=== PATIENT | female | born 1965 ===

== ENCOUNTER 2017-06-12 23:34 | Observation (INO) | payer OTHER ==
[2017-06-12 23:41] VITALS: BMI 37.1
--- NOTE | 2017-06-13 | ED PDOC ---
Arrival/HPI - General Chief Complaint: Back Pain Time Seen by Provider: 06/12/17 23:39 Historian: Patient - History of Present Illness Narrative History of Present Illness (Text): 06/12/17 23:59 Dolly Mejia is a 52 year old female smoker, whose past medical history includes bronchitis, who presents to the Emergency department complaining of chest pain. Patient states she woke up from sleep tonight with sudden onset of sharp back pain radiating to mid-sternal chest tonight. Patient reports associated shortness of breath and notes she felt better after receiving oxygen en route to the hospital. Patient reports family history of OH and CAD. Patient denies fever, chills, nausea, vomiting, diarrhea, urinary symptoms, neck pain, headache, dizziness, or any other complaints. Symptom Onset: Gradual Symptom Course: Unchanged Activities at Onset: Light Context: Home Past Medical History - Provider Review Nursing Documentation Reviewed: Yes - Cardiac Hx Cardiac Disorders: No - Pulmonary Hx Bronchitis: Yes - Neurological Hx Neurological Disorder: No - HEENT Hx HEENT Disorder: No - Renal Hx Renal Disorder: No - Endocrine/Metabolic Hx Endocrine Disorders: No - Hematological/Oncological Hx Blood Disorders: No - Integumentary Hx Dermatological Disorder: No - Musculoskeletal/Rheumatological Hx Musculoskeletal Disorders: No - Gastrointestinal Hx Gastrointestinal Disorders: No - Genitourinary/Gynecological Hx Genitourinary Disorders: No - Psychiatric Hx Psychophysiologic Disorder: No Hx Substance Use: No - Surgical History Hx Section: Yes - Anesthesia Hx Anesthesia: Yes Hx Anesthesia Reactions: No Hx Malignant Hyperthermia: No Family/Social History - Physician Review Nursing Documentation Reviewed: Yes Family/Social History: Unknown Family HX Smoking Status: Light Smoker < 10 Cigarettes Daily Hx Alcohol Use: No Hx Substance Use: No Allergies/Home Meds Allergies/Adverse Reactions: Allergies Penicillins Allergy (Verified 06/12/17 23:41) ITCHING Home Medications: Home Meds Medication Instructions Recorded Confirmed Albuterol 0.5% [Albuterol 0.5% 5 mg NEB PRN PRN 06/13/17 06/13/17 Inhal Chari (2.5 mg/0.5 ml) UD] Review of Systems - Physician Review All systems were reviewed & negative as marked: Yes - Review of Systems Constitutional: Normal. absent: Fevers Eyes: Normal ENT: Normal Respiratory: SOB Cardiovascular: Chest Pain Gastrointestinal: Normal. absent: Abdominal Pain, Diarrhea, Nausea Genitourinary Female: Normal. absent: Dysuria, Frequency, Hematuria, Urine Output Changes Musculoskeletal: Back Pain. absent: Neck Pain Skin: Normal. absent: Rash Neurological: Normal. absent: Headache, Dizziness Endocrine: Normal Hemo/Lymphatic: Normal Psychiatric: Normal Physical Exam Vital Signs Reviewed: Yes Vital Signs Temp Pulse Resp BP Pulse Ox 06/13/17 05:08 97.8 F 77 21 115/71 100 06/13/17 02:43 71 18 116/61 99 06/12/17 23:49 97.6 F 78 18 102/55 L 98 Temperature: Afebrile Blood Pressure: Normal Pulse: Regular Respiratory Rate: Normal Appearance: Positive for: Well-Appearing, Non-Toxic, Comfortable Pain Distress: None Mental Status: Positive for: Alert and Oriented X 3 - Systems Exam Head: Present: Atraumatic, Normocephalic Pupils: Present: PERRL Extroacular Muscles: Present: EOMI Conjunctiva: Present: Normal Mouth: Present: Moist Mucous Membranes Neck: Present: Normal Range of Motion Respiratory/Chest: Present: Decreased Breath Sounds (Decreased breath sounds bilaterally). No: Respiratory Distress, Accessory Muscle Use Cardiovascular: Present: Regular Rate and Rhythm, Normal S1, S2. No: Murmurs Abdomen: No: Tenderness, Distention, Peritoneal Signs Back: Present: Normal Inspection Upper Extremity: Present: Normal Inspection. No: Cyanosis, Edema Lower Extremity: Present: Normal Inspection. No: Edema Neurological: Present: GCS=15, CN II-XII Intact, Speech Normal Skin: Present: Warm, Dry, Normal Color. 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 Plan: -- CTA Chest -- EKG -- CXR -- Labs, cardiac enzymes -- Duoneb -- Reassess and disposition Progress Notes: 06/13/17 00:24 Reviewed EKG, NSR at 74 bpm[address] Non-specific ST/T wave changes. 06/13/17 03:45 CTA Chest shows: No pulmonary embolism. No aortic dissection or aneurysm. No pleural or pericardial effussions. No pulmonary consolidation. A few blebs are noted in the apices. Cholelithiasis without evidence of cholecystitis. There are non obstructing renal calculi. IMPRESSION: Cholelithiasis. 06/13/18 05:10 US Gallbadder and Pancreas: There is a negative sonographic Saez's sign per tissue technologist. Multiple gallstones are present. No pericholecystic fluid. The gallbladder wall measures 2.6 mm which is within normal limits. The common bile duct measures 2.9 mm which is within normal limits. The liver is increased in echogenicity consistent with fatty infiltration. The pancreas is suboptimally visualized. The aorta is not visualized. No right hydronephrosis. The right kidney measures 10 cm in length. IMPRESSION: Cholelithiasis without evidence of cholecystitis. 06/13/17 05:[address] Nino, who is aware and agrees with plan. Accepts pt in to her service. Pt will go to remote telemetry observation for chest pain and back pain. - Lab Interpretations Lab Results: 06/13/17 00:35 06/13/17 00:35 Lab Results 06/13/17 00:35: WBC 6.7, RBC 4.57, Hgb 13.2, Hct 41.0, MCV 89.7, MCH 28.9, MCHC 32.2, RDW 13.5, Plt Count 257, MPV 10.3 06/13/17 00:35: Sodium 141, Potassium 4.2, Chloride 105, Carbon Dioxide 27, Anion Gap 13, BUN 12, Creatinine 0.6 L, Est GFR ( Amer) > 60, Est GFR ( Non-Af Amer) > 60, Random Glucose 126 H, Calcium 8.9, Total Bilirubin 0.3, AST 97 H, ALT 77 H, Alkaline Phosphatase 160 H, Lactate Dehydrogenase 687, Total Creatine Kinase 86, Troponin I < 0.01, Total Protein 6.9, Albumin 3.8, Globulin 3.1, Albumin/Globulin Ratio 1.2 06/13/17 00:35: PT 10.0, INR 0.88 L, APTT 29.7 I have reviewed the lab results: Yes - RAD Interpretation Radiology Orders: 06/13/17 00:01 ANGIO CHEST PE PROTOCOL [CT] Stat 06/13/17 00:09 CHEST PORTABLE [RAD] Stat 06/13/17 04:26 GALLBLADDER & PANCREAS [US] Stat Temporary Help Agency Referral Clerk: ED Physician, Radiologist - EKG Interpretation Interpreted by ED Physician: Yes Type: 12 lead EKG - Medication Orders Current Medication Orders: Aspirin (Ecotrin) 81 mg PO DAILY [facility] Last Admin: 06/13/17 09:39 Dose: 81 mg Famotidine (Pepcid) 20 mg PO 1000,2200 DON Last Admin: 06/13/17 09:38 Dose: 20 mg Discontinued Medications Acetaminophen (Tylenol 325mg Tab) 650 mg PO STAT STA Stop: 06/13/17 00:45 Last Admin: 06/13/17 00:57 Dose: 650 mg MAR Pain/Vitals Document 06/13/17 00:57 LA (Rec: 06/13/17 00:59 LA [id number]) Pain Reassessment Is This A Pain ReAssessment? No Sleep Is patient sleeping during reassessment? No Presence of Pain Presence of Pain Yes Pain Scale Used Pain Scale Used Numeric Location Upper or Lower Lower Pain Location Body Site Back Description Intermittent Intensity 5 Scale Used Numeric Albuterol/Ipratropium (Duoneb 3 Mg/0.5 Mg (3 Ml) Ud) 3 ml IH ONCE STA Stop: 06/13/17 00:11 Last Admin: 06/13/17 00:16 Dose: 3 ml - Scribe Statement The provider has reviewed the documentation as recorded by the Scribyakelin Henson All medical record entries made by the Yuryibyakelin were at my direction and personally dictated by me. I have reviewed the chart and agree that the record accurately reflects my personal performance of the history, physical exam, medical decision making, and the department course for this patient. I have also personally directed, reviewed, and agree with the discharge instructions and disposition. Disposition/Present on Arrival - Present on Arrival Any Indicators Present on Arrival: No History of DVT/PE: No History of Uncontrolled Diabetes: No Urinary Catheter: No History of Decub. Ulcer: No History Surgical Site Infection Following: None - Disposition Have Diagnosis and Disposition been Completed?: Yes Diagnosis: Chest pain, Back pain Disposition: HOSPITALIZED Disposition Time: 04:25 Condition: GOOD
[2017-06-13] MEDS ORDERED: Albuterol-Ipratrop 3 mg / 0.5 (3 ml) UD IH STA (00:10)
[2017-06-13 01:04] LABS: ALB/GLOB RATIO 1.2 (1.1-1.8); ALBUMIN 3.8 g/dL (3.0-4.8); ALT/SGPT 77 U/L (7-56); AST/SGOT 97 U/L (14-36); BLOOD UREA NITROGEN 12 mg/dL (7-21); CALCIUM 8.9 mg/dL (8.4-10.5); GFR AFRICAN-AMERICAN > 60; GFR NON-AFRICAN AMERICAN > 60
[2017-06-13 01:09] LABS: HEMOGLOBIN 13.2 g/dL (12.0-16.0); MEAN CELL VOLUME 89.7 fl (80.0-105.0); MEAN CORPUSCULAR HEMOGLOBIN 28.9 pg (25.0-35.0); MEAN CORPUSCULAR HGB CONC 32.2 g/dl (31.0-37.0); MEAN PLATELET VOLUME 10.3 fl (7.0-11.0); RBC 4.57 10^6/uL (3.5-6.1); RED CELL DISTRIBUTION WIDTH 13.5 % (11.5-14.5); WHITE BLOOD COUNT 6.7 10^3/ul (4.5-11.0)
[2017-06-13 01:13] LABS: INR 0.88 (0.93-1.08); PARTIAL THROMBOPLASTIN TIME 29.7 Seconds (25.1-36.5)
[2017-06-13 01:15] LABS: TROPONIN I < 0.01 ng/mL
[2017-06-13] MEDS ORDERED: Iodixanol 320 MG/ML 100 ML BOTTLE IV ONE (02:04)
--- NOTE | 2017-06-13 03:43 | CT ---
EXAM: CT Angiography Chest With Intravenous Contrast EXAM DATE/TIME: 06/13/2017 12:01 AM CLINICAL HISTORY: 52 years old, female; Pain; Chest pain; Additional info: Sob/back pain/chest pain TECHNIQUE: Axial computed tomographic angiography images of the chest with intravenous contrast using pulmonary embolism protocol. All CT scans at this facility use one or more dose reduction techniques, viz.: automated exposure control; ma/kV adjustment per patient size (including targeted exams where dose is matched to indication; i.e. head); or iterative reconstruction technique. MIP reconstructed images were created and reviewed. Coronal and sagittal reformatted images were created and reviewed. CONTRAST: 96 mL of visi 320 administered intravenously. COMPARISON: No relevant prior studies available. FINDINGS: No pulmonary embolism. No aortic dissection or aneurysm. No pleural or pericardial effussions. No pulmonary consolidation. A few blebs are noted in the apices. Cholelithiasis without evidence of cholecystitis. There are non obstructing renal calculi. IMPRESSION: Cholelithiasis.
--- NOTE | 2017-06-13 05:10 | US ---
EXAM: US Abdomen Limited, Right Upper Quadrant EXAM DATE/TIME: 06/13/2017 4:26 AM CLINICAL HISTORY: 52 years old, female; Pain; Abdominal pain; Generalized TECHNIQUE: Real-time ultrasound of the right upper quadrant with image documentation. COMPARISON: No relevant prior studies available. FINDINGS: There is a negative sonographic Saez's sign per marketing technologist. Multiple gallstones are present. No pericholecystic fluid. The gallbladder wall measures 2.6 mm which is within normal limits. The common bile duct measures 2.9 mm which is within normal limits. The liver is increased in echogenicity consistent with fatty infiltration. The pancreas is suboptimally visualized. The aorta is not visualized. No right hydronephrosis. The right kidney measures 10 cm in length. IMPRESSION: Cholelithiasis without evidence of cholecystitis.
[2017-06-13 06:55] VITALS: BP 118/67; RESP 20; TEMP 97.5
--- NOTE | 2017-06-13 07:48 | RAD ---
HISTORY: sob COMPARISON: Preliminary CT Chest with contrast 06/13/2017 FINDINGS: LUNGS: No active pulmonary disease. PLEURA: No significant pleural effusion identified, no pneumothorax apparent. CARDIOVASCULAR: Cardiac size is normal. No pulmonary vascular derangement. Right hilar vascular markings are accentuated by rotation toward the left. OSSEOUS STRUCTURES: No significant abnormalities. VISUALIZED UPPER ABDOMEN: Normal. OTHER FINDINGS: None. IMPRESSION: No acute cardiopulmonary disease appreciable.
[2017-06-13 07:59] LABS: HDL CHOLESTEROL 61 mg/dL (29-60)
[2017-06-13 08:08] LABS: TROPONIN I < 0.01 ng/mL
[2017-06-13 08:09] LABS: LDL CHOLESTEROL 91 mg/dL (0-129)
[2017-06-13 08:19] VITALS: O2SAT 96
--- NOTE | 2017-06-13 09:22 | CP.PCM.CON ---
History of Present Illness - History of Present Illness History of Present Illness: Awake, alert, ambulatory, denies chestpain,denies shortness of breath Reason for consultation: Cardiac evaluation, chest pain, shortness of breath, history of bronchitis, current smoker Brief history of present illness: A 52 year old female who came in to the ER due to back pain radiating to the chest accompanied with shortness of breath. She claimed to have similar complaints last year and went to [facility] [place]. She claimed stress test and echocardiogram done with normal results. She has history of bronchitis, current smoker and obese. Denies any other medical problems. Seen and examined by me and Dr. Humphrey Review of Systems - Constitutional Constitutional: As Per HPI - EENT Additional comments: denies any problems - Breasts Additional comments: denies any problems - Cardiovascular Cardiovascular: Chest Pain - Respiratory Respiratory: Dyspnea - Gastrointestinal Additional comments: denies nausea,denies vomiting,denies bloating - Genitourinary Additional comments: denies any problems - Musculoskeletal Additional comments: denies any problems - Neurological Additional comments: admit to be stressed - Endocrine Additional Comments: denies high blood glucose - Hematologic/Lymphatic Additional comments: denies any problems Past Patient History - Past Social History Smoking Status: Light Smoker < 10 Cigarettes Daily - CARDIAC Hx Cardiac Disorders: No - PULMONARY Hx Respiratory Disorders: Yes Hx Bronchitis: Yes Other/Comment: Current smoker - NEUROLOGICAL Hx Neurological Disorder: No - HEENT Hx HEENT Problems: No - RENAL Hx Chronic Kidney Disease: No - ENDOCRINE/METABOLIC Hx Endocrine Disorders: No - HEMATOLOGICAL/ONCOLOGICAL Hx Blood Disorders: No - INTEGUMENTARY Hx Dermatological Problems: No - MUSCULOSKELETAL/RHEUMATOLOGICAL Hx Musculoskeletal Disorders: No Hx Falls: No - GASTROINTESTINAL Hx Gastrointestinal Disorders: No - GENITOURINARY/GYNECOLOGICAL Hx Genitourinary Disorders: No - PSYCHIATRIC Hx Psychophysiologic Disorder: No Hx Substance Use: No - SURGICAL HISTORY Hx Surgeries: Yes Hx Orthopedic Surgery: Yes (tibal/fibula repair) - ANESTHESIA Hx Anesthesia: Yes Hx Anesthesia Reactions: No Hx Malignant Hyperthermia: No Meds Allergies/Adverse Reactions: Allergies Allergy/AdvReac Type Severity Reaction Status Date / Time Penicillins Allergy ITCHING Verified 06/12/17 23:41 - Medications Medications: Current Medications Aspirin (Ecotrin) 81 mg PO DAILY DON Famotidine (Pepcid) 20 mg PO 1000,2200 DON Physical Exam - Constitutional Appears: No Acute Distress - Head Exam Head Exam: NORMOCEPHALIC - Eye Exam Eye Exam: Normal appearance - ENT Exam ENT Exam: Mucous Membranes Moist - Neck Exam Neck exam: Positive for: Normal Inspection - Respiratory Exam Respiratory Exam: Clear to Auscultation Bilateral, NORMAL BREATHING PATTERN - Cardiovascular Exam Cardiovascular Exam: +S1, +S2 Additional comments: telemetry NSR 70's - GI/Abdominal Exam GI & Abdominal Exam: Normal Bowel Sounds, Soft - Back Exam Back exam: NORMAL INSPECTION - Neurological Exam Neurological exam: Alert, Normal Gait, Oriented x3 - Psychiatric Exam Psychiatric exam: Normal Affect, Normal Mood - Skin Skin Exam: Intact, Normal Color, Warm Results - Vital Signs Recent Vital Signs: Last Vital Signs Temp 97.5 F L 06/13/17 08:18 Pulse 66 06/13/17 08:18 Resp 20 06/13/17 08:18 BP 118/67 06/13/17 08:18 Pulse Ox 96 06/13/17 08:18 - Labs Result Diagrams: 06/13/17 00:35 06/13/17 00:35 Labs: Laboratory Results - last 24 hr 06/13/17 06/13/17 07:35 07:35 Lactate Dehydrogenase 615 Total Creatine Kinase 76 Troponin I < 0.01 Triglycerides 92 Cholesterol 176 LDL Cholesterol Direct 91 HDL Cholesterol 61 H TSH 3rd Generation 4.26 Assessment & Plan - Assessment and Plan (Free Text) Assessment: A 52 year old female who came in to the ER due to back pain radiating to the chest accompanied with shortness of breath. She claimed to have similar complaints last year and went to [facility] [place]. She claimed stress test and echocardiogram done with normal results. She has history of bronchitis, current smoker and obese. Denies any other medical problems. Ultrasound and CT scan of abdomen done in ER and showed cholelithiasis without cholecystitis. Review of work up: 06/13/17 No previous cardiac work up [place] [facility] [place] showed normal sinus rhythm, no evidence of ischemia Negative Troponins Chest X ray- normal Ultrasound of abdomen-cholelithiasis without cholecystitis. CT of abdomen-cholelithiasis without cholecystitis. Plan: Atypical chest pain No evidence of myocardial ischemia EKG showed NSR with no ischemia Negative troponins Blood pressure and heart rate stable Ultrasound and CT scan of abdomen showed cholelithiasis Consider GI follow up For ECHO to evaluate LV function On ASA 81 mg daily Continue current treatment Continue current medications Stable cardiac status Will follow up Thank you Dr. Nino for giving us the opportunity to take care of Dolly Mejia
[2017-06-13 14:28] VITALS: PULSE 71
--- NOTE | 2017-06-13 16:50 | CARD ---
APPROVED REPORT EXAM: Two-dimensional and M-mode echocardiogram with Doppler and color Doppler. INDICATION CP/ LVFX 2D DIMENSIONS IVSd1.0 (0.7-1.1cm)LVDd3.7 (3.9-5.9cm) PWd1.1 (0.7-1.1cm)LVDs2.7 (2.5-4.0cm) FS (%) 27.9 %LVEF (%)54.8 (>50%) M-Mode DIMENSIONS Aortic Root2.70 (2.2-3.7cm)Aortic Cusp Exc.1.90 (1.5-2.0cm) Aortic Valve AoV Peak Ijmhntfs544.0cm/Vic Peak GR.7mmHg Mitral Valve MV E Dhrokczd24.9cm/sMV A Pmasuzvx37.9cm/sE/A ratio1.1 TDI Lateral E' Peak V11.50cm/sMedial E' Peak V7.41cm/sE/Lateral E'8.0 E/Medial E'12.4 Pulmonary Valve PV Peak Pyjhybhg05.7cm/sPV Peak Grad.2mmHg Tricuspid Valve TR Peak Bdqwzoka390yb/sRAP [id number] Peak Gr.10mmHg [id number] LEFT VENTRICLE The left ventricle is normal size. There is normal left ventricular wall thickness. The left ventricular function is normal.EF-55% There is normal LV segmental wall motion. The left ventricular diastolic function is normal. No left ventricle thrombus noted on this study. There is no ventricular septal defect visualized. There is no left ventricular aneurysm. There is no mass noted in the left ventricle. RIGHT VENTRICLE The right ventricle is normal size. There is normal right ventricular wall thickness. The right ventricular systolic function is normal. ATRIA The left atrium size is normal. The right atrium size is normal. The interatrial septum is intact with no evidence for an atrial septal defect. AORTIC VALVE The aortic valve is thickened but opens well. The aortic valve is mildly sclerotic. No aortic regurgitation is present. There is no aortic valvular stenosis. There is no aortic valvular vegetation. MITRAL VALVE The mitral valve is thickened but opens well. Mitral regurgitation is trace. There is no mitral valve stenosis. There is no evidence of mitral valve prolapse. TRICUSPID VALVE The tricuspid valve leaflets are thickened , but open well. There is trace tricuspid regurgitation.RVSP-20 mmof hg. There is no tricuspid valve stenosis. There is no tricuspid valve prolapse or vegetation. PULMONIC VALVE The pulmonic valve is not well visualized. GREAT VESSELS The aortic root is normal in size. The ascending aorta is normal in size. The pulmonary artery is normal. The IVC is normal in size and collapses >50% with inspiration. PERICARDIAL EFFUSION There is no pleural effusion. There is no pericardial effusion. <Conclusion> Normal chamber Size. EF-55% Trace MR/TR RVSP-20 mmof Hg.
--- NOTE | 2017-06-13 22:45 | CARD ---
APPROVED REPORT EKG Measurement Heart [id number] <Conclusion> Normal sinus rhythm Low voltage QRS Borderline ECG
--- NOTE | 2017-06-14 11:14 | CON ---
DATE: 06/13/2017 PULMONARY CONSULTATION REFERRING PHYSICIAN: Tenisha Nino MD. REASON FOR CONSULTATION: Cough, shortness of breath, may have sleep apnea syndrome. HISTORY OF PRESENT ILLNESS: This is a 52-year-old female who is active smoker, probably has chronic obstructive lung disease who comes in with shortness of breath and cough, came to emergency room, did get inhaled bronchodilator and felt better. She also had nonspecific chest pain. Admit to have snoring, daytime sleepy and tired. PAST MEDICAL HISTORY: Chronic lung disease. FAMILY HISTORY: No significant lung disease, but there is coronary artery disease in the family. SOCIAL HISTORY: She is smoker. Denying any alcohol use. ALLERGIES: TO PENICILLIN, DEVELOP ITCHING. MEDICATIONS: She received DuoNeb, Ecotrin, Pepcid and Tylenol. REVIEW OF SYSTEMS: No headache. No rhinitis. Admit to have loud snoring, daytime sleepy and tired. Has some cough. Nonspecific chest pain. No nausea. No vomiting or diarrhea. No leg pain or leg swelling. PHYSICAL EXAMINATION: GENERAL: Lying in the bed, in no acute distress. VITAL SIGNS: Temp is 98, heart rate is 71, respiratory rate is 20, blood pressure 118/67, pulse ox 96% on room air. HEENT: Moist mucous membrane. Crowded airway. NECK: Supple. No JVD. LUNGS: Have prolonged expiratory phase. HEART: S1 and S2. ABDOMEN: Soft, nontender. No organomegaly. EXTREMITIES: No edema. NEUROLOGIC: Awake, alert. Follows simple commands. LABORATORY DATA: Shows hemoglobin 13.2, hematocrit of 41, WBC is 6.7, platelet is 257. INR 0.88. PTT is 30. Sodium 141, potassium 4.2, chloride 105, bicarbonate 27, BUN 12, creatinine 0.6, glucose 126, hemoglobin A1c 6.3. AST 97, ALT 77, alk phos is 160. LDH . Troponin less than 0.01. Albumin 3.8. Cholesterol is 176. TSH is 4.26. She had echocardiogram done, which shows LV ejection fraction is 55%, right ventricular systolic pressure is 20. Also has a CT of the chest done in the ER, which shows some cholelithiasis. Lungs are unremarkable. IMPRESSION AND PLAN: Probably has chronic obstructive lung disease. There may be component of sleep apnea syndrome. Patient was advised to stop smoking. Pulmonary status stable to discharge. Will need attended sleep study upon discharge, also need pulmonary function test. Thank you and we will follow with you. Richa Mills MD
== END 2017-06-13 14:47 | disposition home or self-care (01) ==
LOC: ED 23:34 → ERH 06-13 04:27 → 3RNO 06-13 05:42
PROVIDERS: ADMIT Internal Medicine; ATTEND Internal Medicine
DX: R07.89 Other chest pain (principal); M54.9 Dorsalgia, unspecified; R06.02 Shortness of breath; J40 Bronchitis, not specified as acute or chronic; K80.20 Calculus of gallbladder without cholecystitis without obstruction; E66.9 Obesity, unspecified; Z68.37 Body mass index [BMI] 37.0-37.9, adult
CPT/HCPCS: 71045; 71275; 76705; 80053; 80061; 82550; 83036; 83615; 84443; 84484; 85027; 85610; 85730; 93005; 93306; 99285; G0378; Q9967